=== PATIENT | male | born 1950 | race Caucasian/White ===

== ENCOUNTER 2016-11-11 20:35 | Emergency (ER) | payer BC, MEDICARE, SELFPAY ==
[~2016-11-11] VITALS: Ht 162.6 cm; Wt 68.0 kg
[2016-11-11 20:36] VITALS: BP 106/82
== END 2016-11-11 22:02 | disposition left against medical advice (07) ==
LOC: M ED 21:36
DX: S69.90XA Unspecified injury of unspecified wrist, hand and finger(s), initial encounter (principal); X58.XXXA Exposure to other specified factors, initial encounter; Y92.89 Other specified places as the place of occurrence of the external cause; Y93.89 Activity, other specified; Y99.8 Other external cause status; Z53.21 Procedure and treatment not carried out due to patient leaving prior to being seen by health care provider

== ENCOUNTER → 2019-05-10 | Outpatient (CLI) | payer MEDICARE ==
[~2019-05-10] MED LIST: ATOR1TAB19 PO; LISI20TA19 PO; PANT20TA2 PO
--- NOTE | 2019-05-10 09:13 | ECGEPIP ---
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
== END ==
LOC: M EKG 07:59
PROVIDERS: ATTEND Surgery
DX: Z01.818 Encounter for other preprocedural examination (principal); R03.0 Elevated blood-pressure reading, without diagnosis of hypertension

== ENCOUNTER 2019-05-11 05:57 | Day surgery (SDC) | payer MEDICARE ==
[~2019-05-11] VITALS: Ht 162.6 cm; Wt 69.9 kg
[2019-05-11] MEDS ORDERED: ROCURONIUM BROMIDE 50 MG/5 ML VIAL As Ordered ONE (06:32)
[2019-05-11] MEDS ORDERED: KETOROLAC 60 MG/2 ML VIAL (J1885) As Ordered ONE (06:32)
[2019-05-11] MEDS ORDERED: ONDANSETRON 4MG/2ML VIAL (J2405) As Ordered ONE (06:32)
[2019-05-11] MEDS ORDERED: PROPOFOL 200 MG/20 ML VIAL As Ordered ONE (06:32)
[2019-05-11] MEDS ORDERED: LIDOCAINE 2% INJ 100 MG/5 ML SDV (FOR ANES.) As Ordered ONE (06:32)
[2019-05-11] MEDS ORDERED: dexameTHASONE 4 MG/ML 1ML VIAL (J1100) As Ordered ONE (06:32)
[2019-05-11] MEDS ORDERED: fentaNYL 250 MCG/5 ML INJECTION (J3010) As Ordered ONE (06:33)
[2019-05-11] MEDS ORDERED: MIDAZOLAM INJ 2 MG/2 ML VIAL (J2250) As Ordered ONE (06:33)
[2019-05-11] MEDS ORDERED: BUPIVACAINE/EPIN 0.25% 30 ML VIAL As Ordered ONE (06:57)
[2019-05-11] MEDS ORDERED: ceFAZolin SOD 1 GM in D5W MINI-BAG PLUS 50 ML IV ONE (07:00)
[2019-05-11] MEDS ORDERED: LR 1,000 ML IV ONE (07:00)
[2019-05-11 07:13] LABS: CALCIUM LEVEL 9.1 MG/DL (8.8-10.2); CREATININE FOR GFR 1.5 MG/DL (0.70-1.30); GLOMERULAR FILTRATION RATE 49.4 (>49); POTASSIUM SERUM 4.3 MEQ/L (3.5-5.1)
[2019-05-11] MEDS ORDERED: PHENYLEPHRINE INJ 10MG/ML VIAL (J2370) As Ordered ONE (08:14)
[2019-05-11] MEDS ORDERED: PHENYLephrine HCL 500 MCG/5 ML (100MCG/ML) SYRINGE (J2370) As Ordered ONE (08:24)
[2019-05-11] MEDS ORDERED: ePHEDrine SULFATE 25 MG/5 ML(5MG/ML) SYRINGE As Ordered ONE (08:24)
[2019-05-11] MEDS ORDERED: SUGAMMADEX SODIUM 500 MG/5 ML VIAL (BRIDION) As Ordered ONE (08:33)
[2019-05-11] MEDS ORDERED: BUPIVACAINE LIPOSOME/PF 1.3% 20ML VIAL (13.3MG/ML)(EXPAREL)(C9290 PER1MG) As Ordered ONE (08:58)
--- NOTE | 2019-05-11 09:20 | RO ---
DATE OF PROCEDURE: 05/11/2019 PREOPERATIVE DIAGNOSIS: Left inguinal hernia. POSTOPERATIVE DIAGNOSIS: Left inguinal hernia and incarcerated umbilical hernia. PROCEDURE: Robotic-assisted laparoscopic left inguinal hernia with ProGrip mesh and robotic-assisted laparoscopic umbilical hernia repair. SURGEON: Tyrese Thomas MD CNA LTC: Irma [facility] NP (provided instrument exchange, mesh placement, abdominal wall closure, and trocar placement). ANESTHESIA: General endotracheal anesthesia. ESTIMATED BLOOD LOSS (EBL): Minimal. FLUIDS: Crystalloid. BRIEF PROCEDURE SUMMARY: The patient was brought to the operating room and was given general anesthesia. After adequate anesthesia and preoperative antibiotics were given, the patient was prepped and draped in the usual sterile fashion. The patient had a preoperative small umbilical hernia and I was able to reduce some of this but not the entire amount, and thus, I went supraumbilical. We had talked about this preoperatively whether to repair this or not and this was much less symptomatic and problematic for him compared to his left inguinal hernia. Thus, a supraumbilical incision was made with skin knife. Blunt dissection was carried down to fascia. Veress needle placed in the abdominal cavity and insufflated to 15 mm of pressure. Once entering the abdomen with a dilating trocar it was obvious that there was some incarcerated fat within the umbilicus itself/omentum. This needed to be reduced sharply and then, the left inguinal area was able to be better visualized. The patient was placed in a Trendelenburg position and after placing both lateral trocars the left inguinal area was dissected out in the following manner. The peritoneum was taken down by sharp dissection. Blunt dissection was used to mobilize the peritoneum off the cord structures and what originally almost looked like an indirect hernia given that the dimpling was right over the epigastric the hernia slid to the right and was a direct hernia. In any case, all this area was mobilized quite nicely using some blunt dissection and some electrocautery for some loose areolar tissue and small vessels in this area, and eventually this was mobilized off Mark's ligament, lateral border of the pubis and off the cord structures. A ProGrip mesh was placed in the preperitoneal space and cut to the appropriate size preplacement and the peritoneum was closed over the top of this with running #3-0 V-Loc. Placement was nice and the placement of the peritoneal closure went together nicely under decreased pressure. Next, at this time the scope was backed up and looking at the umbilical area there was a very small fascial defect and I anticipate it probably was a centimeter in size. Using #2-0 V-Loc suture, I was able to close this nicely in a running manner. The local anesthetic was placed around the trocar sites and around the umbilicus, and the scope was removed. The camera undocked. The patient was awakened, extubated after trocar sites were closed with #4-0 Vicryl sutures. Steri-Strips and dry sterile dressing was applied. The patient was awakened from his anesthesia, extubated, brought to recovery room awake, alert and hemodynamically stable. Sponge and needle counts correct times two.
[2019-05-11] MEDS ORDERED: MORPHINE 10 MG/ML 1ML VIAL (J2270) IV PRN (09:30)
[2019-05-11] MEDS ORDERED: LR 1,000 ML IV SCH ×2 (09:30)
[2019-05-11] MEDS ORDERED: PERCOCET 5MG/325MG TAB PO PRN (09:30)
[2019-05-11] MEDS ORDERED: ONDANSETRON 4MG/2ML VIAL (J2405) IV PRN (09:30)
[2019-05-11] MEDS ORDERED: NORCO, ANEXSIA 5/325MG TABLET (HYDROcodone/ACETAMINOPHEN) PO PRN (09:30)
[2019-05-11] MEDS ORDERED: fentaNYL 100 MCG/2 ML INJECTION (J3010) IV PRN (09:30)
[2019-05-11 12:18] VITALS: BP 133/78
== END 2019-05-11 13:00 | disposition home or self-care (01) ==
LOC: M SDC 05:57
PROVIDERS: ATTEND Surgery
DX: K40.90 Unilateral inguinal hernia, without obstruction or gangrene, not specified as recurrent (principal); K42.0 Umbilical hernia with obstruction, without gangrene; I10 Essential (primary) hypertension; K21.9 Gastro-esophageal reflux disease without esophagitis; E78.00 Pure hypercholesterolemia, unspecified; R06.83 Snoring; Z79.899 Other long term (current) drug therapy
CPT/HCPCS: 36415; 49650; 49653; 80048; C1781; C9290; J0690; J1100; J1885; J2250; J2370; J2405; J3010

== ENCOUNTER → 2022-05-29 | Outpatient (CLI) | payer MEDICARE ==
[~2022-05-29] MED LIST changes: -LISI20TA19 PO; +LISI20TA35 PO; -PANT20TA2 PO; +PANT20TA6 PO
[2022-05-29 11:55] LABS: BASO % 0.7 % (0.0-1.0); EOS # 0.2 10^3/uL (0.0-0.5); EOS % 3.5 % (0.0-3.0); HEMOGLOBIN 14.7 g/dl (13.5-17.5); LYMPH # 1.7 10^3/uL (1.5-5.0); MEAN CORPUSCULAR HEMOGLOBIN 34.2 pg (27.0-33.0); MEAN CORPUSCULAR HGB CONC 32.7 g/dl (32.0-36.5); MEAN CORPUSCULAR VOLUME 104.7 fl (80.0-96.0); MONO # 0.6 10^3/uL (0.0-0.8); MONO % 12.2 % (2.0-8.0); NEUTROPHILS # 2.1 10^3/uL (1.5-8.5); NEUTROPHILS % 46.4 % (36.0-66.0); PLATELET COUNT, AUTOMATED 212 10^3/uL (150-450); WHITE BLOOD COUNT 4.6 10^3/uL (4.0-10.0)
[2022-05-29 12:30] LABS: PROSTATIC SPECIFIC AG MONITOR 0.37 NG/ML (< 4.00)
[2022-05-29 12:33] LABS: ALBUMIN 3.9 G/DL (3.2-5.2); BILIRUBIN,TOTAL 0.9 MG/DL (0.3-1.2); CALCIUM LEVEL 9.1 MG/DL (8.3-10.6); CHOLESTEROL RISK RATIO 3.08 (<5); CREATININE FOR GFR 1.4 MG/DL (0.70-1.30); HDL CHOLESTEROL 64.2 MG/DL (>40); LDL CHOLESTEROL 107.8 MG/DL (<100); POTASSIUM SERUM 4.5 MMOL/L (3.5-5.1); THYROID STIMULATING HORMONE 1.412 uIU/ML (0.55-4.78); TOTAL PROTEIN 6.6 G/DL (5.7-8.2)
== END ==
LOC: M WUC 08:37
PROVIDERS: ATTEND Physician Assistant
DX: E78.5 Hyperlipidemia, unspecified (principal); I10 Essential (primary) hypertension; R35.1 Nocturia; E55.9 Vitamin D deficiency, unspecified

== ENCOUNTER → 2023-06-20 | Outpatient (CLI) | payer MEDICARE ==
[2023-06-20 10:56] LABS: APPEARANCE, URINE CLEAR (CLEAR); BACTERIA, URINE AUTO NEGATIVE (NEGATIVE); BILIRUBIN, URINE AUTO NEGATIVE (NEGATIVE); BLOOD, URINE BLOOD NEGATIVE (NEGATIVE); COLOR, URINE YELLOW (YELLOW); GLUCOSE, URINE (UA) AUTO NEGATIVE (NEGATIVE); KETONE, URINE AUTO NEGATIVE (NEGATIVE); LEUKOCYTE ESTERASE, URINE AUTO NEGATIVE (NEGATIVE); NITRITE, URINE AUTO NEGATIVE (NEGATIVE); PROTEIN, URINE AUTO NEGATIVE (NEGATIVE); RBC, URINE AUTO 0 /HPF (0-3); SPECIFIC GRAVITY URINE AUTO 1.017 (1.002-1.035); SQUAMOUS EPITHELIAL CELL UR AU 0 /HPF (0-6); WBC, URINE AUTO 0 /HPF (0-3)
[2023-06-20 10:59] LABS: HEMATOCRIT 43.9 % (42.0-52.0); HEMOGLOBIN 14.6 g/dl (13.5-17.5); MEAN CORPUSCULAR HEMOGLOBIN 34.9 pg (27.0-33.0); MEAN CORPUSCULAR HGB CONC 33.3 g/dl (32.0-36.5); PLATELET COUNT, AUTOMATED 187 10^3/uL (150-450); RED BLOOD COUNT 4.18 10^6/uL (4.30-6.10); WHITE BLOOD COUNT 4.7 10^3/uL (4.0-10.0)
[2023-06-20 11:36] LABS: ALBUMIN 3.9 G/DL (3.2-5.2); BILIRUBIN,TOTAL 0.8 MG/DL (0.3-1.2); CALCIUM LEVEL 9.2 MG/DL (8.3-10.6); CHOLESTEROL RISK RATIO 3.06 (<5); CREATININE FOR GFR 1.3 MG/DL (0.70-1.30); GLOMERULAR FILTRATION RATE 57.6 (>42); HDL CHOLESTEROL 66.3 MG/DL (>40); LDL CHOLESTEROL 98.5 MG/DL (<100); NON-HDL-C 136.7 MG/DL; POTASSIUM SERUM 3.9 MMOL/L (3.5-5.1); PROSTATIC SPECIFIC AG MONITOR 0.43 NG/ML (< 4.00); TOTAL PROTEIN 6.5 G/DL (5.7-8.2)
[2023-06-20 11:40] LABS: THYROID STIMULATING HORMONE 2.612 uIU/ML (0.55-4.78)
== END ==
LOC: M WUC 08:16
PROVIDERS: ATTEND Physician Assistant
DX: I10 Essential (primary) hypertension (principal); E78.5 Hyperlipidemia, unspecified; R35.1 Nocturia

== ENCOUNTER → 2023-12-22 | Outpatient (CLI) | payer MEDICARE ==
[2023-12-22 12:42] LABS: HEMATOCRIT 41.1 % (42.0-52.0); HEMOGLOBIN 13.6 g/dl (13.5-17.5); MEAN CORPUSCULAR HEMOGLOBIN 35.1 pg (27.0-33.0); MEAN CORPUSCULAR HGB CONC 33.1 g/dl (32.0-36.5); MEAN CORPUSCULAR VOLUME 106.2 fl (80.0-96.0); PLATELET COUNT, AUTOMATED 201 10^3/uL (150-450); RED BLOOD COUNT 3.87 10^6/uL (4.30-6.10); WHITE BLOOD COUNT 4.3 10^3/uL (4.0-10.0)
[2023-12-22 12:50] LABS: ALBUMIN 3.8 G/DL (3.2-5.2); BILIRUBIN,TOTAL 0.7 MG/DL (0.3-1.2); CALCIUM LEVEL 9.3 MG/DL (8.3-10.6); CHOLESTEROL RISK RATIO 3.03 (<5); CREATININE FOR GFR 1.29 MG/DL (0.70-1.30); HDL CHOLESTEROL 55.3 MG/DL (>40); LDL CHOLESTEROL 74.5 MG/DL (<100); MAGNESIUM LEVEL 1.9 MG/DL (1.8-2.4); NON-HDL-C 112.7 MG/DL; POTASSIUM SERUM 4.4 MMOL/L (3.5-5.1); TOTAL PROTEIN 6.3 G/DL (5.7-8.2)
[2023-12-22 12:52] LABS: TOTAL 25(OH) VITAMIN D 37.2 NG/ML (20.0-100.0)
== END ==
LOC: M WUC 09:10
PROVIDERS: ATTEND Physician Assistant
DX: E78.5 Hyperlipidemia, unspecified (principal); I10 Essential (primary) hypertension; R25.2 Cramp and spasm; Z79.899 Other long term (current) drug therapy

== ENCOUNTER 2024-04-14 07:32 | Emergency (ER) | payer MEDICARE ==
[~2024-04-14] VITALS: Ht 162.6 cm; Wt 69.7 kg
[2024-04-14] MEDS ORDERED: LISI20TA33 (08:07)
[2024-04-14 08:59] LABS: HEMATOCRIT 41.9 % (42.0-52.0); MEAN CORPUSCULAR HEMOGLOBIN 35.4 pg (27.0-33.0); MEAN CORPUSCULAR HGB CONC 33.4 g/dl (32.0-36.5); MEAN CORPUSCULAR VOLUME 105.8 fl (80.0-96.0); PLATELET COUNT, AUTOMATED 173 10^3/uL (150-450); RED BLOOD COUNT 3.96 10^6/uL (4.30-6.10); WHITE BLOOD COUNT 3.2 10^3/uL (4.0-10.0)
[2024-04-14 09:30] LABS: CALCIUM LEVEL 9.7 MG/DL (8.3-10.6); CREATININE FOR GFR 1.32 MG/DL (0.70-1.30); GLOMERULAR FILTRATION RATE 56.4 (>42); MAGNESIUM LEVEL 1.9 MG/DL (1.8-2.4); POTASSIUM SERUM 4.6 MMOL/L (3.5-5.1)
[2024-04-14 09:33] LABS: THYROID STIMULATING HORMONE 0.813 uIU/ML (0.55-4.78)
[2024-04-14 10:00] LABS: ALBUMIN 3.7 G/DL (3.2-5.2); BILIRUBIN,DIRECT 0.3 MG/DL (<0.4); BILIRUBIN,TOTAL 0.8 MG/DL (0.3-1.2); TOTAL PROTEIN 6.5 G/DL (5.7-8.2)
[2024-04-14 10:13] LABS: INR 1.09; PROTHROMBIN TIME 13.8 SECONDS (12.5-14.5)
[2024-04-14 12:31] LABS: BASO % 0.3 % (0.0-1.0); EOS % 0.9 % (0.0-3.0); LYMPH # 0.9 10^3/uL (1.5-5.0); LYMPH % 27.4 % (24.0-44.0); MONO # 0.4 10^3/uL (0.0-0.8); MONO % 12.5 % (2.0-8.0); NEUTROPHILS # 1.9 10^3/uL (1.5-8.5); NEUTROPHILS % 58.6 % (36.0-66.0)
[2024-04-14 12:50] LABS: ETHYL ALCOHOL (ETHANOL) 0.009 % (0.000-0.010)
[2024-04-14] MEDS ORDERED: LISI10TA22 PO (13:12)
[2024-04-14 13:33] VITALS: BP 124/77; TEMP 98; O2SAT 98
== END 2024-04-14 13:36 | disposition home or self-care (01) ==
LOC: M ED 07:32
DX: I95.1 Orthostatic hypotension (principal); T46.5X5A Adverse effect of other antihypertensive drugs, initial encounter; K70.0 Alcoholic fatty liver; I10 Essential (primary) hypertension; K21.9 Gastro-esophageal reflux disease without esophagitis; F10.10 Alcohol abuse, uncomplicated; Z79.811 Long term (current) use of aromatase inhibitors; Z79.02 Long term (current) use of antithrombotics/antiplatelets; Z79.899 Other long term (current) drug therapy

== ENCOUNTER → 2024-06-28 | Outpatient (CLI) | payer MEDICARE ==
[~2024-06-28] MED LIST changes: +LISI10TA22 PO; +LISI20TA33
[2024-06-28 10:50] LABS: HEMATOCRIT 45.7 % (42.0-52.0); HEMOGLOBIN 15.2 g/dl (13.5-17.5); MEAN CORPUSCULAR HEMOGLOBIN 34.6 pg (27.0-33.0); MEAN CORPUSCULAR HGB CONC 33.3 g/dl (32.0-36.5); MEAN CORPUSCULAR VOLUME 104.1 fl (80.0-96.0); PLATELET COUNT, AUTOMATED 182 10^3/uL (150-450); RED BLOOD COUNT 4.39 10^6/uL (4.30-6.10)
[2024-06-28 11:21] LABS: THYROID STIMULATING HORMONE 2.84 uIU/ML (0.55-4.78)
[2024-06-28 11:25] LABS: ALBUMIN 3.8 G/DL (3.2-5.2); BILIRUBIN,TOTAL 1.1 MG/DL (0.3-1.2); CALCIUM LEVEL 9.7 MG/DL (8.3-10.6); CHOLESTEROL RISK RATIO 3.02 (<5); CREATININE FOR GFR 1.34 MG/DL (0.70-1.30); GLOMERULAR FILTRATION RATE 55.5 (>42); HDL CHOLESTEROL 66.4 MG/DL (>40); LDL CHOLESTEROL 102.4 MG/DL (<100); NON-HDL-C 134.6 MG/DL; POTASSIUM SERUM 4.2 MMOL/L (3.5-5.1); TOTAL PROTEIN 6.6 G/DL (5.7-8.2)
[2024-06-28 11:33] LABS: FOLATE 15.9 NG/ML (>5.4)
[2024-06-29 07:09] LABS: WHITE BLOOD COUNT 4.6 10^3/uL (4.0-10.0)
== END ==
LOC: M WUC 08:13
PROVIDERS: ATTEND Physician Assistant
DX: D51.9 Vitamin B12 deficiency anemia, unspecified (principal); E78.5 Hyperlipidemia, unspecified; I10 Essential (primary) hypertension; D72.819 Decreased white blood cell count, unspecified

== ENCOUNTER → 2024-08-30 | Outpatient (CLI) | payer MEDICARE | LOC: M RAD 08:15 | PROVIDERS: ATTEND Physician Assistant | DX: R74.01 Elevation of levels of liver transaminase levels (principal); K76.0 Fatty (change of) liver, not elsewhere classified; K80.20 Calculus of gallbladder without cholecystitis without obstruction; N28.1 Cyst of kidney, acquired ==

== ENCOUNTER → 2024-12-30 | Outpatient (CLI) | payer MEDICARE ==
[2024-12-30 13:42] LABS: BASO # 0.0 10^3/uL (0.0-0.2); BASO % 0.4 % (0.0-1.0); EOS # 0.1 10^3/uL (0.0-0.5); EOS % 1.8 % (0.0-3.0); LYMPH # 1.6 10^3/uL (1.5-5.0); LYMPH % 36.4 % (24.0-44.0); MONO # 0.5 10^3/uL (0.0-0.8); MONO % 10.0 % (2.0-8.0); NEUTROPHILS # 2.3 10^3/uL (1.5-8.5); NEUTROPHILS % 51.2 % (36.0-66.0); PLATELET COUNT, AUTOMATED 220 10^3/uL (150-450)
[2024-12-30 13:47] LABS: PSA SCREENING 0.5 NG/ML (< 4.00)
[2024-12-30 13:49] LABS: ALT/SGPT 99.0 U/L (7.0-40); AST/SGOT 108.0 U/L (<34); CALCIUM LEVEL 10.0 MG/DL (8.3-10.6); CARBON DIOXIDE LEVEL 28.0 MMOL/L (20-31); CHLORIDE LEVEL 103.0 MMOL/L (98-107); CHOLESTEROL LEVEL 158.0 MG/DL (<200); CHOLESTEROL RISK RATIO 2.84 (<5); CREATININE FOR GFR 1.34 MG/DL (0.70-1.30); GLOMERULAR FILTRATION RATE 55.2 (>42); LDL CHOLESTEROL 68.0 MG/DL (<100); NON-HDL-C 102.4 MG/DL; POTASSIUM SERUM 4.6 MMOL/L (3.5-5.1); SODIUM LEVEL 144.0 MMOL/L (136-145); TRIGLYCERIDES LEVEL 172.0 MG/DL (<150)
[2024-12-30 14:00] LABS: APPEARANCE, URINE CLEAR (CLEAR); BACTERIA, URINE AUTO NEGATIVE (NEGATIVE); BILIRUBIN, URINE AUTO NEGATIVE (NEGATIVE); BLOOD, URINE BLOOD NEGATIVE (NEGATIVE); GLUCOSE, URINE (UA) AUTO NEGATIVE (NEGATIVE); KETONE, URINE AUTO NEGATIVE (NEGATIVE); LEUKOCYTE ESTERASE, URINE AUTO NEGATIVE (NEGATIVE); NITRITE, URINE AUTO NEGATIVE (NEGATIVE); PROTEIN, URINE AUTO NEGATIVE (NEGATIVE); RBC, URINE AUTO 0 /HPF (0-3); SPECIFIC GRAVITY URINE AUTO 1.011 (1.002-1.035); SQUAMOUS EPITHELIAL CELL UR AU 0 /HPF (0-6); UROBILINOGEN, URINE AUTO 2.0 mg/dL (0.0-2.0); WBC, URINE AUTO 0 /HPF (0-3)
== END ==
LOC: M WUC 09:06
PROVIDERS: ATTEND Physician Assistant
DX: I10 Essential (primary) hypertension (principal); E78.5 Hyperlipidemia, unspecified; R35.1 Nocturia; Z12.5 Encounter for screening for malignant neoplasm of prostate
CPT/HCPCS: 36415; 80053; 80061; 81001; 84443; 85025; G0103